=== PATIENT | female | born 1985 | race Caucasian/White ===

== ENCOUNTER 2023-10-02 21:08 | Emergency (ER) | payer MEDICAID ==
[~2023-10-02] VITALS: Ht 167.6 cm; Wt 86.2 kg
[2023-10-02 21:22] VITALS: BP_SYST 137; PULSE 92; RESP 18; TEMP 98.3; O2SAT 100
[2023-10-02] MEDS ORDERED: KETOROLAC TROMETHAMINE 60 MG/2 ML VIAL IM ONE (22:00)
[2023-10-02] MEDS ORDERED: NAPR-1172 PO (22:05)
[2023-10-02 22:20] VITALS: BP_SYST 137; PULSE 92; RESP 18; TEMP 98.3; O2SAT 100
== END 2023-10-02 22:25 | disposition home or self-care (01) ==
LOC: SED 21:08
DX: S43.121A Dislocation of right acromioclavicular joint, 100%-200% displacement, initial encounter (principal); M25.511 Pain in right shoulder; Z79.899 Other long term (current) drug therapy; V89.2XXA Person injured in unspecified motor-vehicle accident, traffic, initial encounter; Y93.89 Activity, other specified; Y92.89 Other specified places as the place of occurrence of the external cause; Y99.8 Other external cause status
CPT/HCPCS: 99283; 29105; 73030; 96372; J1885